=== PATIENT | female | born 1970 | race Caucasian/White ===

== ENCOUNTER 2020-05-13 15:14 | Emergency (ER) | payer OTHER ==
[~2020-05-13] VITALS: Ht 170.2 cm; Wt 97.5 kg
[2020-05-13 15:49] LABS: URINE BILIRUBIN NEGATIVE (Negative); URINE BLOOD TRACE (Negative); URINE CLARITY CLEAR; URINE COLOR YELLOW; URINE GLUCOSE-RANDOM 3+ (Negative); URINE KETONES NEGATIVE (Negative); URINE LEUKOCYTES-REFLEX NEGATIVE (Negative); URINE NITRITE-REFLEX NEGATIVE (Negative); URINE PROTEIN NEGATIVE (Negative); URINE SPECIFIC GRAVITY 1.025 (1.005-1.030); URINE UROBILINOGEN 0.2 E.U./dl (0.2-1.0)
[2020-05-13 15:59] LABS: AMP/METHAMP POSITIVE (Negative); BARBITURATES Negative (Negative); BENZODIAZEPINES Negative (Negative); COCAINE Negative (Negative); METHADONE Negative (Negative); OPIATES Negative (Negative); PCP Negative (Negative); THC Negative (Negative)
[2020-05-13 16:00] LABS: ABSOLUTE BASOPHILS 0.1 thou/uL (0.0-0.2); ABSOLUTE EOSINOPHILS 0.2 thou/uL (0.0-0.7); ABSOLUTE LYMPHOCYTES 2.4 thou/uL (0.8-5.3); ABSOLUTE MONOCYTES 0.7 thou/uL (0.0-1.2); ABSOLUTE NEUTROPHILS 7.9 thou/uL (1.6-8.1); BASOPHILS 0.6 %; EOSINOPHILS 1.7 %; HEMATOCRIT 43.1 % (37.0-47.0); HEMOGLOBIN 14.5 gm/dL (12.0-15.0); LYMPHOCYTES 21.5 %; MCH 26.2 pg (26.0-34.0); MCHC 33.6 g/dL (28.0-37.0); MCV 78.1 fL (80.0-100.0); MONOCYTES 6.6 %; MPV 7.1 fl. (7.2-11.1); NUCLEATED RBCS 0 /100WBC; PLATELET COUNT* 392 thou/uL (150-400); POLYS 69.6 %; RBC 5.52 mil/uL (4.20-5.00); WBC 11.4 thou/uL (4.0-11.0)
[2020-05-13 16:07] LABS: CALCIUM 8.5 mg/dL (8.5-10.1); CREATININE 1.1 mg/dL (0.6-1.3); POTASSIUM 3.8 mmol/L (3.5-5.1)
[2020-05-13] MEDS ORDERED: ZESTORETIC 20-1 EACH PO (16:08)
[2020-05-13 16:12] LABS: ALBUMIN 3.4 g/dL (3.4-5.0); TOTAL BILIRUBIN 0.2 mg/dL (<0.1-1.0); TOTAL PROTEIN 7.3 g/dL (6.4-8.2)
[2020-05-13 17:58] VITALS: BP 157/94
== END 2020-05-13 17:59 | disposition home or self-care (01) ==
LOC: M.ERS 15:14
PROVIDERS: Family Medicine
DX: I10 Essential (primary) hypertension (principal); R51 Headache; E11.9 Type 2 diabetes mellitus without complications; F17.210 Nicotine dependence, cigarettes, uncomplicated; Z86.14 Personal history of Methicillin resistant Staphylococcus aureus infection; Z88.0 Allergy status to penicillin

== ENCOUNTER 2021-07-21 02:03 | Emergency (ER) | payer OTHER ==
[~2021-07-21] VITALS: Ht 170.2 cm; Wt 99.8 kg
[~2021-07-21 02:03] MED LIST: ZESTORETIC 20-1 EACH PO
[2021-07-21 02:55] LABS: ABSOLUTE BASOPHILS 0.1 thou/uL (0.0-0.2); ABSOLUTE EOSINOPHILS 0.1 thou/uL (0.0-0.7); ABSOLUTE LYMPHOCYTES 2.7 thou/uL (0.8-5.3); ABSOLUTE NEUTROPHILS 7.8 thou/uL (1.6-8.1); BASOPHILS 0.8 %; EOSINOPHILS 1.2 %; HEMATOCRIT 48.5 % (37.0-47.0); HEMOGLOBIN 15.8 gm/dL (12.0-15.0); MCH 26.5 pg (26.0-34.0); MCHC 32.6 g/dL (28.0-37.0); MCV 81.5 fL (80.0-100.0); MONOCYTES 8.7 %; MPV 7.2 fl. (7.2-11.1); NUCLEATED RBCS 0 /100WBC; PLATELET COUNT* 338 thou/uL (150-400); POLYS 66.3 %; RBC 5.95 mil/uL (4.20-5.00); RDW-CV 13.8 % (10.5-14.5); WBC 11.8 thou/uL (4.0-11.0)
[2021-07-21 03:17] LABS: CALCIUM 9.4 mg/dL (8.5-10.1); POTASSIUM 4.7 mmol/L (3.5-5.1)
[2021-07-21 03:20] LABS: ALBUMIN 2.9 g/dL (3.4-5.0); MAGNESIUM 1.6 mg/dL (1.8-2.4); TOTAL BILIRUBIN 0.4 mg/dL (<0.1-1.0); TOTAL PROTEIN 6.7 g/dL (6.4-8.2)
[2021-07-21 04:30] LABS: URINE BILIRUBIN NEGATIVE (Negative); URINE BLOOD NEGATIVE (Negative); URINE CLARITY CLEAR; URINE COLOR STRAW; URINE GLUCOSE-RANDOM 3+ (Negative); URINE KETONES NEGATIVE (Negative); URINE LEUKOCYTES-REFLEX NEGATIVE (Negative); URINE NITRITE-REFLEX NEGATIVE (Negative); URINE PROTEIN NEGATIVE (Negative); URINE UROBILINOGEN 0.2 E.U./dl (0.2-1.0)
[2021-07-21] MEDS ORDERED: ERYTHROMYCIN E3.5 G2 OPHTHALMIC (06:05)
[2021-07-21] MEDS ORDERED: KEFLEX250 MG PO (06:05)
[2021-07-21] MEDS ORDERED: HYDROCODON-ACE1 EAC8 PO (06:05)
[2021-07-21 07:19] VITALS: BP 152/87
== END 2021-07-21 07:22 | disposition home or self-care (01) ==
LOC: M.ERS 02:03
PROVIDERS: Emergency Medicine
DX: H10.33 Unspecified acute conjunctivitis, bilateral (principal); E11.65 Type 2 diabetes mellitus with hyperglycemia; J06.9 Acute upper respiratory infection, unspecified; I10 Essential (primary) hypertension; F17.210 Nicotine dependence, cigarettes, uncomplicated; Z79.899 Other long term (current) drug therapy; Z88.0 Allergy status to penicillin